=== PATIENT | male | born 1980 | race American Indian/Alaskan Native ===

== ENCOUNTER 2021-11-05 08:25 | Emergency (ER) | payer SELFPAY ==
[2021-11-05 08:45] VITALS: BP 115/71
--- NOTE | 2021-11-05 09:08 | Emergency Department Report ---
ED Extremity Problem HPI - General Chief complaint: Extremity Problem,Nontraumatic Stated complaint: NUMBNESS LT THIGH Time Seen by Provider: 11/05/21 08:57 Source: patient Mode of arrival: Ambulatory Limitations: No Limitations - History of Present Illness Initial comments: 41-year-old morbid obese -[place] male presents to the emergency room c omplaining of a 2-week history of left thigh numbness and tingling. Patient states it is when he has been sitting for long period of time and gets up is when he starts experiencing the tingling. He states it only lasts about 5 to 10 minutes. He denies any injuries no fall no back pain no urinary symptoms he does have a past medical history of diabetes and is currently on metformin. Patient reports that he carries his wallet in his left back pocket. He states that he will sometimes take Tylenol and ibuprofen. He reports that he checks his blood sugar often and is compliant with his medication. He states that he checks his feet on a daily basis. Onset/Timin Location: left ED Review of Systems ROS: Stated complaint: NUMBNESS LT THIGH Other details as noted in HPI Comment: All other systems reviewed and negative ED Physical Exam - General Limitations: No Limitations General appearance: alert, in no apparent distress - Head Head exam: Present: atraumatic, normocephalic - Eye Eye exam: Present: normal appearance - ENT ENT exam: Present: mucous membranes moist - Neck Neck exam: Present: normal inspection - Respiratory Respiratory exam: Absent: respiratory distress, accessory muscle use - Cardiovascular Cardiovascular Exam: Present: regular rate, normal rhythm. Absent: systolic murmur, diastolic murmur, rubs, gallop - GI/Abdominal GI/Abdominal exam: Present: soft, normal bowel sounds - Rectal Rectal exam: Present: deferred - Extremities Exam Extremities exam: Present: normal inspection - Expanded Lower Extremity Exam Left Hip exam: Present: normal inspection, full ROM. Absent: tenderness Upper Leg exam: Present: normal inspection. Absent: full ROM Knee exam: Present: normal inspection, full ROM. Absent: tenderness Lower Leg exam: Present: normal inspection, full ROM Ankle exam: Present: normal inspection. Absent: full ROM, tenderness, swelling Foot/Toe exam: Present: normal inspection, full ROM. Absent: tenderness, swelling Neuro vascular tendon exam: Present: no vascular compromise Gait: Positive: observed and normal - Back Exam Back exam: Present: normal inspection - Neurological Exam Neurological exam: Present: alert, oriented X3, normal gait - Psychiatric Psychiatric exam: Present: normal affect, normal mood - Skin Skin exam: Present: warm, dry, intact, normal color. Absent: rash ED Course Vital Signs 11/05/21 08:44 Temperature 98.3 F Pulse Rate 92 H Respiratory 16 Rate Blood Pressure 115/71 [Right] O2 Sat by Pulse 97 Oximetry ED Medical Decision Making - Medical Decision Making 41-year-old morbid obese -[place] male presents to the emergency room complaining of a 2-week history of left thigh numbness and tingling. Patient states it is when he has been sitting for long period of time and gets up is when he starts experiencing the tingling. He states it only lasts about 5 to 10 minutes. He denies any injuries no fall no back pain no urinary symptoms he does have a past medical history of diabetes and is currently on metformin. Patient reports that he carries his wallet in his left back pocket. He states that he will sometimes take Tylenol and ibuprofen. He reports that he checks his blood sugar often and is compliant with his medication. He states that he checks his feet on a daily basis. Patient has a normal examination no sciatica notch tenderness pulses are intact gait is normal no tenderness to touch of the thigh or calf. Discussed with patient he can follow-up with a primary care provider. Is most likely due to constriction of the nerve that is running down the back of his legs as he sits and puts pressure and blocks it off. Discussed with patient that it also can be of his wallet in that left back pocket that can also be causing discomfort. Recommend patient to follow-up. Critical care attestation.: If time is entered above; I have spent that time in minutes in the direct care of this critically ill patient, excluding procedure time. ED Disposition Clinical Impression: Numbness of left anterior thigh Disposition: HOME / SELF CARE / HOMELESS Is pt being admited?: No Does the pt Need Aspirin: No Condition: Stable Instructions: Paresthesia, [id number] Additional Instructions: Recommend to remove your wallet from your left back pocket. Recommend to follow-up with a primary care provider. Referrals: GABRIEL LEARY MD [Staff Physician] - 3-5 Days BRODY RICKS MD [Staff Physician] - 3-5 Days CHAPITO CASTAÑEDA MD [Staff Physician] - 3-5 Days Forms: Work/School Release Form(ED) Time of Disposition: 09:08
== END 2021-11-05 09:14 | disposition home or self-care (01) ==
LOC: ED 08:25
DX: R20.2 Paresthesia of skin (principal)
CPT/HCPCS: 99282